=== PATIENT | male | born 1990 | race African-American/Black ===

== ENCOUNTER 2017-05-05 16:08 | Emergency (ER) | payer SELFPAY ==
[~2017-05-05] VITALS: Ht 190.5 cm; Wt 99.8 kg
[2017-05-05] MEDS ORDERED: IV NORMAL SALINE 1000ML BAG 1,000 ML IV SCH (16:29)
[2017-05-05] MEDS ORDERED: hydrALAZINE 20 MG/ML VIAL. IVP ONE (16:30)
[2017-05-05] MEDS: fentaNYL PF VIAL 100 MCG/2 ML VIAL IV PRN ×2 (16:40→17:13)
--- NOTE | 2017-05-05 16:40 | PHYS DOC ---
Past Medical History Past Medical History: Hypertension Past Surgical History: No Surgical History Alcohol Use: Occasionally Drug Use: None Adult General Chief Complaint Chief Complaint: HEADACHE HPI HPI Patient is a 27 year old male who presents to the ED with the complaint of headache for one week. The headache has been constant. He has tried taking Excedrin which does help but it doesn't completely go away and when the Excedrin wears off his headache is just as bad. He's had a headache like this before but it's been a long time. He denies fever, denies neck stiffness. No weakness, no visual changes. The patient has a diagnosis of hypertension and he has 2 medications, he thinks they might be metoprolol and clonidine. He does not take them regularly because he forgets to take them. He does not have a primary care doctor right now because he does not have insurance. Review of Systems Review of Systems Constitutional: Denies fever or chills [] Eyes: Denies change in visual acuity, redness, or eye pain [] HENT: Denies nasal congestion or sore throat [] Respiratory: Denies cough or shortness of breath [] Cardiovascular: Denies chest pain GI: Denies abdominal pain, nausea, vomiting, bloody stools or diarrhea [] : Denies dysuria or hematuria [] Musculoskeletal: Denies back pain or joint pain [] Integument: Denies rash or skin lesions [] Neurologic: As in history of present illness Current Medications Current Medications Current Medications Medications (Trade) Dose Ordered Sig/Torey Start Time Stop Time Status Last Admin Dose Admin Fentanyl Citrate (Fentanyl 2ml Vial) 50 mcg PRN Q15MIN PRN 05/05/17 16:30 05/06/17 16:29 05/05/17 16:40 50 MCG Hydralazine HCl (Apresoline) 10 mg 1X ONCE 05/05/17 16:30 05/05/17 16:33 DC 05/05/17 16:40 10 MG Sodium Chloride 1,000 ml @ 1,000 mls/hr Q1H 05/05/17 16:29 05/05/17 17:28 05/05/17 16:39 1,000 MLS/HR Allergies Allergies Allergies Coded Allergies Type Severity Reaction Last Updated Verified cetirizine Allergy Intermediate HIVES 05/05/17 Yes Physical Exam Physical Exam Constitutional: Well developed, well nourished, no acute distress, non-toxic appearance. Alert, mentating normally, normal speech. HENT: Normocephalic, atraumatic, bilateral external ears normal, nose normal. [ ] Eyes: conjunctiva normal, no discharge. [] Neck: Normal range of motion, no tenderness, supple, no stridor. [] Cardiovascular:Heart rate regular rhythm, no murmur [] Lungs & Thorax: Bilateral breath sounds clear to auscultation [] Abdomen: Bowel sounds normal, soft, no tenderness, no masses, no pulsatile masses. [] Skin: Warm, dry, no erythema, no rash. [] Extremities: No tenderness, no cyanosis, no clubbing, ROM intact, no edema. [] Neurologic: Alert and oriented X 3, normal motor function, normal sensory function, no focal deficits noted. [] Current Patient Data Vital Signs Vital Signs Date Time Temp Pulse Resp B/P (MAP) Pulse Ox O2 Delivery O2 Flow Rate FiO2 05/05/17 16:43 80 18 160/99 (119) 97 Room Air 05/05/17 16:20 98.0 98.0 Lab Values Laboratory Tests Test 05/05/17 16:35 White Blood Count 3.8 x10^3/uL (4.0-11.0) L Red Blood Count 5.16 x10^6/uL (4.30-5.70) Hemoglobin 14.5 g/dL (13.0-17.5) Hematocrit 41.9 % (39.0-53.0) Mean Corpuscular Volume 81 fL (79-100) Mean Corpuscular Hemoglobin 28 pg (25-35) Mean Corpuscular Hemoglobin Concent 35 g/dL (31-37) Red Cell Distribution Width 13.3 % (11.5-14.5) Platelet Count 247 x10^3/uL (140-400) Neutrophils (%) (Auto) 48 % (31-73) Lymphocytes (%) (Auto) 38 % (24-48) Monocytes (%) (Auto) 10 % (0-9) H Eosinophils (%) (Auto) 2 % (0-3) Basophils (%) (Auto) 1 % (0-3) Neutrophils # (Auto) 1.8 x10^3uL (1.8-7.7) Lymphocytes # (Auto) 1.5 x10^3/uL (1.0-4.8) Monocytes # (Auto) 0.4 x10^3/uL (0.0-1.1) Eosinophils # (Auto) 0.1 x10^3/uL (0.0-0.7) Basophils # (Auto) 0.0 x10^3/uL (0.0-0.2) Sodium Level 142 mmol/L (136-145) Potassium Level 3.9 mmol/L (3.5-5.1) Chloride Level 105 mmol/L (98-107) Carbon Dioxide Level 33 mmol/L (21-32) H Anion Gap 4 (6-14) L Blood Urea Nitrogen 17 mg/dL (8-26) Creatinine 1.3 mg/dL (0.7-1.3) Estimated GFR (Cockcroft-Gault) 79.0 BUN/Creatinine Ratio 13 (6-20) Glucose Level 84 mg/dL (70-99) Calcium Level 9.4 mg/dL (8.5-10.1) Total Bilirubin 0.5 mg/dL (0.2-1.0) Aspartate Amino Transferase (AST) 17 U/L (15-37) Alanine Aminotransferase (ALT) 26 U/L (16-63) Alkaline Phosphatase 67 U/L (46-116) Total Protein 7.7 g/dL (6.4-8.2) Albumin 4.2 g/dL (3.4-5.0) Albumin/Globulin Ratio 1.2 (1.0-1.7) Laboratory Tests 05/05/17 16:35 Laboratory Tests 05/05/17 16:35 EKG EKG [] Radiology/Procedures Radiology/Procedures [] Course & Med Decision Making Course & Med Decision Making Pertinent Labs and Imaging studies reviewed. (See chart for details) 27-year-old male with a history of hypertension presents to the ED with a headache. His blood pressure is 190s over 129. The patient has prescribed antihypertensives at home but does not take them regularly because he forgets. We talked about whether his blood pressure elevation could be contributing to his headache and vice versa. I discussed with the patient that we will give him some IV pain and blood pressure medicines and see if we can get him feeling better and his headache improved. At this time, I do not suspect any severe or toxic cause of his headache. He is alert and appropriate, his headache has been ongoing for a week without development of concerning symptoms. He is afebrile. Labs unremarkable for acute findings. Blood pressure was down to 160/99 after IV treatment. The patient had a liter of IV fluids. The patient states his headache is much better, not completely gone. He is not driving. We will give him one dose of pain medicine prior to discharge. I emphasized to the patient the importance of treating his blood pressure by taking his antihypertensives regularly, talked about end organ damage and the importance of dosing regularly. [] Dragon Disclaimer Dragon Disclaimer This electronic medical record was generated, in whole or in part, using a voice recognition dictation system. Departure Departure Impression: Primary Impression: Headache Additional Impression: Hypertension Disposition: 01 HOME, SELF-CARE Condition: IMPROVED Referrals: NO PCP (PCP) Patient Instructions: Hypertension, [id number] Additional Instructions: No driving for 12 hours due to the medication you were given in the emergency department. As we discussed, it is very important to keep your blood pressure under control to avoid damage to your organs such as heart attack, heart failure, stroke, kidney failure. Be sure you take YOUR blood pressure medication as prescribed and follow-up with a primary care doctor for medical care. Problem Qualifiers USMAN JEONG MD May 05, 2017 16:40
[2017-05-05 16:41] LABS: BASO % 1 % (0-3); EOS % 2 % (0-3); HEMATOCRIT 41.9 % (39.0-53.0); HEMOGLOBIN 14.5 g/dL (13.0-17.5); LYMPH # 1.5 x10^3/uL (1.0-4.8); LYMPH % 38 % (24-48); MEAN CORPUSCULAR HEMOGLOBIN 28 pg (25-35); MEAN CORPUSCULAR HGB CONC 35 g/dL (31-37); MEAN CORPUSCULAR VOLUME 81 fL (79-100); MONO % 10 % (0-9); NEUT % 48 % (31-73); PLATELET COUNT 247 x10^3/uL (140-400); RED BLOOD COUNT 5.16 x10^6/uL (4.30-5.70); RED CELL DISTRIBUTION WIDTH 13.3 % (11.5-14.5); WHITE BLOOD COUNT 3.8 x10^3/uL (4.0-11.0)
[2017-05-05 16:43] VITALS: BP 160/99
[2017-05-05 16:50] LABS: CALCIUM 9.4 mg/dL (8.5-10.1); CREATININE 1.3 mg/dL (0.7-1.3); POTASSIUM 3.9 mmol/L (3.5-5.1)
[2017-05-05 16:56] LABS: ALBUMIN 4.2 g/dL (3.4-5.0); ALBUMIN/GLOBULIN RATIO 1.2 (1.0-1.7); TOTAL BILIRUBIN 0.5 mg/dL (0.2-1.0); TOTAL PROTEIN 7.7 g/dL (6.4-8.2)
== END 2017-05-05 17:19 | disposition home or self-care (01) ==
LOC: ER 16:08
DX: R51 Headache (principal); I10 Essential (primary) hypertension; Z79.899 Other long term (current) drug therapy; Z88.8 Allergy status to other drugs, medicaments and biological substances
CPT/HCPCS: 36415; 80053; 85027; 96361; 96374; 96375; 96376; 99284; J0360; J3010; J7030

== ENCOUNTER 2018-12-11 11:01 | Emergency (ER) | payer SELFPAY ==
[~2018-12-11] VITALS: Ht 190.5 cm; Wt 108.9 kg
[2018-12-11 11:19] VITALS: BP 133/95
[2018-12-11] MEDS ORDERED: IPRATRPIUM/ALBUTEROL 0.5/2.5MG 3 ML NEBU. NEB ONE (11:30)
[2018-12-11] MEDS ORDERED: predniSONE 10 MG TABLET PO ONE (11:30)
[2018-12-11] MEDS ORDERED: ACETAMINOPHEN 500 MG TABLET PO ONE (11:30)
--- NOTE | 2018-12-11 11:58 | RAD ---
EXAM: Chest, 2 views. HISTORY: Hemoptysis. Pain. COMPARISON: None. FINDINGS: 2 views of the chest are obtained. There is no infiltrate, pleural effusion or pneumothorax. The heart is normal in size. IMPRESSION: No acute pulmonary finding. Electronically signed by: Kelly Kuo MD (12/11/2018 11:54 AM) [facility]
[2018-12-11 12:15] LABS: INFLUENZA A PATIENT NEGATIVE (NEGATIVE); INFLUENZA B PATIENT NEGATIVE (NEGATIVE)
[2018-12-11] MEDS ORDERED: BENZ100C PO (13:01)
[2018-12-11] MEDS ORDERED: PRED50TA PO (13:01)
[2018-12-11] MEDS ORDERED: VENTOLIN HFA18 GM INH (13:01)
--- NOTE | 2018-12-11 13:01 | PHYS DOC ---
Past Medical History Past Medical History: Hypertension Past Surgical History: No Surgical History Alcohol Use: Occasionally Drug Use: None Adult General Chief Complaint Chief Complaint: FLU SYMPTOM HPI HPI Patient is a 28 year old male with history of hypertension who presents to the ED today complaining of a productive cough with nasal congestion for 3 weeks and subjective fevers since yesterday. Review of Systems Review of Systems Constitutional: Reports fever, denies chills Eyes: Denies change in visual acuity, redness, or eye pain [] HENT: Reports nasal congestion, sore throat [] Respiratory: Reports cough, denies shortness of breath [] Cardiovascular: No additional information not addressed in HPI [] GI: Denies abdominal pain, nausea, vomiting, bloody stools or diarrhea [] : Denies dysuria or hematuria [] Musculoskeletal: Denies back pain or joint pain [] Integument: Denies rash or skin lesions [] Neurologic: Denies headache, focal weakness or sensory changes [] All other systems were reviewed and found to be within normal limits, except as documented in this note. Current Medications Current Medications Current Medications Medications (Trade) Dose Ordered Sig/Torey Start Time Stop Time Status Last Admin Dose Admin Acetaminophen (Tylenol) 1,000 mg 1X ONCE 12/11/18 11:30 12/11/18 11:32 DC 12/11/18 11:43 1,000 MG Albuterol/ Ipratropium (Duoneb) 3 ml 1X ONCE 12/11/18 11:30 12/11/18 11:32 DC 12/11/18 11:48 3 ML Prednisone (Prednisone) 50 mg 1X ONCE 12/11/18 11:30 12/11/18 11:32 DC 12/11/18 11:43 50 MG Allergies Allergies Allergies Coded Allergies Type Severity Reaction Last Updated Verified cetirizine Allergy Intermediate HIVES 05/05/17 Yes Physical Exam Physical Exam Constitutional: Well developed, well nourished, no acute distress, non-toxic appearance. [] HENT: Normocephalic, atraumatic, bilateral external ears normal, oropharynx moist, no oral exudates, nose normal. [] Eyes: PERRLA, EOMI, conjunctiva normal, no discharge. [] Neck: Normal range of motion, no tenderness, supple, no stridor. [] Cardiovascular:Heart rate regular rhythm, no murmur [] Lungs & Thorax: Bilateral breath sounds clear to auscultation [] Abdomen: Bowel sounds normal, soft, no tenderness, no masses, no pulsatile masses. [] Skin: Warm, dry, no erythema, no rash. [] Back: No tenderness, no CVA tenderness. [] Extremities: No tenderness, no cyanosis, no clubbing, ROM intact, no edema. [] Neurologic: Alert and oriented X 3, normal motor function, normal sensory function, no focal deficits noted. [] Psychologic: Affect normal, judgement normal, mood normal. [] Current Patient Data Vital Signs Vital Signs Date Time Temp Pulse Resp B/P (MAP) Pulse Ox O2 Delivery O2 Flow Rate FiO2 12/11/18 11:51 98 Room Air 12/11/18 11:19 98.2 81 18 133/95 (108) 98.2 Lab Values Laboratory Tests Test 12/11/18 11:25 Influenza Type A Antigen Negative (NEGATIVE) Influenza Type B Antigen Negative (NEGATIVE) EKG EKG [] Radiology/Procedures Radiology/Procedures [] Course & Med Decision Making Course & Med Decision Making Pertinent Labs and Imaging studies reviewed. (See chart for details) This is a 28-year-old male patient presenting to the ED today with a productive cough nasal congestion for 3 weeks. Also complaining of fevers since yesterday. Patient is in no distress. Vitals are stable with normal temperature. Chest x- ray is negative for any acute findings. Negative for influenza A or B. Negative rapid strep. Symptoms are likely viral. Discharged with albuterol inhaler, prednisone, Tessalon Perles. Follow-up with PCP in 1-2 weeks. Draghemant Disclaimer Dragon Disclaimer This electronic medical record was generated, in whole or in part, using a voice recognition dictation system. Departure Departure Impression: Primary Impression: Acute bronchitis Disposition: 01 HOME, SELF-CARE Condition: STABLE Referrals: NO PCP (PCP) Follow-up with your doctor in 1-2 weeks Patient Instructions: Acute Bronchitis, [id number] Additional Instructions: You were evaluated in the emergency room, your strep test is negative, your chest x-ray is negative, your influenza test is negative. Your symptoms are likely viral. Use the prescribed medications as ordered. Follow-up with your doctor in 1-2 weeks. Scripts Prednisone (PREDNISONE) 50 Mg Tablet 1 TAB PO DAILY, #5 TAB Prov: MUTUNGA,RHIANNA KEYBOARDING CLERK 12/11/18 Benzonatate (TESSALON PERLE) 100 Mg Capsule 1 CAP PO TID, #30 CAP Prov: RHIANNA NOBLE APRN 12/11/18 Albuterol Sulfate (VENTOLIN HFA INHALER) 18 Gm Hfa.aer.ad 2 PUFF INH Q4HRS for FOR ASTHMA, #1 INHALER 0 Refills Prov: RHIANNA NOBLE APRN 12/11/18 Problem Qualifiers Primary Impression: Acute bronchitis Bronchitis organism: unspecified organism Qualified Codes: J20.9 - Acute bronchitis, unspecified RHIANNA NOBLE APRN Dec 11, 2018 13:01
== END 2018-12-11 13:07 | disposition home or self-care (01) ==
LOC: ER 11:01
DX: J20.9 Acute bronchitis, unspecified (principal); I10 Essential (primary) hypertension; Z88.1 Allergy status to other antibiotic agents
CPT/HCPCS: 71046; 87070; 87804; 87880; 94640; 99284; J7512; J7620